=== PATIENT | male | born 1955 | race Caucasian/White ===

== ENCOUNTER 2022-06-03 10:55 | Outpatient (CLI) | payer MEDICARE, SELFPAY ==
[2022-06-03 11:51] VITALS: BMI 27.8
--- NOTE | 2022-06-03 11:56 | ECG_ITS ---
[facility] Test Date: 2022-06-03 Pat Name: Julien Bradshaw Department: Room: Gender: Male Software Application Tester: : 1955 Requested By: Joe Vasquez Order Number: [id number] Cannon MD: Katey Chacon M.D. Interpretive Statements NAME OF STUDY: TREADMILL STRESS TEST INDICATION: Dizziness Baseline blood pressure of 157/76 mm Hg, heart rate of 66 beats per minute and oxygen saturation of 95%. EKG showed sinus rhythm with PAC's. Possible old anteroseptal infarct with non specific T wave changes. ??? The patient exercised for 7 minutes and 19 seconds on a standard Randy protocol. Patient attained a maximum heart rate of 149 beats per minute( 98 % of the maximum predicted heart rate) with a blood pressure at the peak exercise of 205/93 mm Hg and oxygen saturation of 94%. The EKG at the peak exercise revealed sinus tachycardia with 1-[address] depression in II, III, aVF and V5-V6. Patient did [not have any significant arrhythmis with the exercise. The study was terminated due to maximal effort.??? During the recovery phase, there were no new changes. Patient developed chest pain in early recovery that resolved by discharge. ??? Blood pressure at the end of the recovery phase was 164/96 mm Hg with a heart rate of 65 beats per minute and oxygen saturation of 95%. ??? CONCLUSION: 1. Positive EKG response to treadmill exercise with 1-[address] depression in II, III, aVF and V5-V6. 2. No cardiac arrhythmia. Patient developed chest pain in early recovery. 3. Excellent exercise tolerance, attained a maximum of 10.2 METs. Maximum VO2 of 35.7 ml/kg/min. 4. Baseline hypertension with hypertensive response to exercise. Electronically Signed On 06-03-2022 17:49:28 CDT by Katey Chacon M.D. [email or web address]
[2022-06-03 12:00] VITALS: BP 164/96; PULSE 66
== END 2022-06-03 10:56 | disposition home or self-care (01) ==
PROVIDERS: PCP Family Medicine; Visit Provider Family Medicine
DX: R42 Dizziness and giddiness (principal); I10 Essential (primary) hypertension
CPT/HCPCS: 93017

== ENCOUNTER → 2022-07-01 14:26 | Outpatient (BNVA) | payer MEDICARE, SELFPAY | PROVIDERS: PCP Family Medicine; Visit Provider Internal Medicine Cardiovascular Disease | DX: R94.39 Abnormal result of other cardiovascular function study (principal); I12.9 Hypertensive chronic kidney disease with stage 1 through stage 4 chronic kidney disease, or unspecified chronic kidney disease; F17.200 Nicotine dependence, unspecified, uncomplicated; N18.30 Chronic kidney disease, stage 3 unspecified; R06.00 Dyspnea, unspecified; R07.9 Chest pain, unspecified; G47.33 Obstructive sleep apnea (adult) (pediatric); Z99.89 Dependence on other enabling machines and devices | CPT/HCPCS: 99205 ==

== ENCOUNTER 2022-07-24 10:04 | Outpatient (CLI) | payer MEDICARE, SELFPAY ==
--- NOTE | 2022-07-24 10:15 | USCV_ITS ---
Julien Bradshaw Age: 66 Gender: M : 1955 Exam Date: 07/24/2022 10:37 Ordering Phys: Nancy Lopez MD ([email or web address]) Technologist: Miguel Goodson [place] [facility] [place]/SOB BP: 112 / 58 HR: 61 Rhythm: Sinus Technical Quality: Adequate MEASUREMENTS (Male / Female) Normal Values 2D ECHO LV Diastolic Diameter PLAX 3.1 cm 4.2 - 5.9 / 3.9 - 5.3 cm LV Systolic Diameter PLAX 2.1 cm IVS Diastolic Thickness 1.0 cm 0.6 - 1.0 / 0.6 - 0.9 cm IVS Systolic Thickness 1.4 cm LVPW Diastolic Thickness 1.4 cm 0.6 - 1.0 / 0.6 - 0.9 cm LVPW Systolic Thickness 1.6 cm LVOT Diameter 2.0 cm LV Ejection Fraction 2D Teich 62.0 % LV Ejection Fraction MOD 2C 57.6 % LV Ejection Fraction 2C AL 58.4 % LA Diameter 3.3 cm LA Width 2.8 cm LA Height 3.6 cm RA Width 2.6 cm RA Height 3.8 cm Aorta at Sinotubular Diameter 3.0 cm IVC Diameter 1.3 cm M-MODE Aortic Annulus Diameter 3.0 cm LA Ao Ratio MM 1.1 MV E Point Septal Separation 0.8 cm DOPPLER AV Peak Velocity 132.0 cm/s LVOT Peak Velocity 107.0 cm/s AV Area Cont Eq vti 2.9 cm squared AV Area Cont Eq pk 2.5 cm squared MV Peak Velocity 85.0 cm/s MV Area PHT 6.7 cm squared Mitral E to A Ratio 0.8 MV E' Velocity 36.0 cm/s Mitral E to MV E' Ratio 8.7 Mitral E to LV E' Lateral Ratio 8.2 Mitral E to LV E' Septal Ratio 9.3 TR Peak Velocity 113.9 cm/s TR Peak Gradient 5.2 mmHg TR Mean Velocity 91.6 cm/s TR Mean Gradient 3.4 mmHg TR Velocity Time Integral 27.1 cm Right Atrial Pressure 3.0 mmHg Pulmonary Artery Systolic Pressu 8.2 mmHg PV Peak Velocity 85.5 cm/s RV Acceleration Time 0.1 s RV Ejection Time 0.3 s RV AcT/ET 0.5 FINDINGS Left Ventricle Normal left ventricular size and systolic function, EF 65 %. Mild left ventricular hypertrophy. No regional wall motion abnormalities. Grade I/IV diastolic dysfunction (abnormal relaxation filling pattern), normal to mildly elevated filling pressures. Right Ventricle The right ventricle is normal in size and function. Right Atrium The right atrium is normal in size. Left Atrium The left atrium is normal in size. Mitral Valve No gross abnormalities noted Aortic Valve Thickened aortic valve. Tricuspid Valve No gross abnormalities noted Pulmonic Valve Pulmonic valve not well visualized. Pericardium No pericardial effusion. Aorta Normal ascending aorta dimension. IVC The inferior vena cava appears normal. CONCLUSIONS Normal left ventricular size and systolic function, EF 65 %. Mild left ventricular hypertrophy. No regional wall motion abnormalities. Grade I/IV diastolic dysfunction (abnormal relaxation filling pattern), normal to mildly elevated filling pressures. Thickened aortic valve. No significant stenotic or regurgitant lesions There is no pericardial effusion. No similar previous studies are available for comparison Dr Nancy Lopez MD FACC (Electronically Signed) Final Date: 25 July 2022 10:08 S
== END 2022-07-24 10:05 | disposition home or self-care (01) ==
LOC: RAD 10:05
PROVIDERS: PCP Family Medicine; Visit Provider Internal Medicine Cardiovascular Disease
DX: R06.09 Other forms of dyspnea (principal); R07.9 Chest pain, unspecified; R06.02 Shortness of breath; I35.8 Other nonrheumatic aortic valve disorders
CPT/HCPCS: 93306

== ENCOUNTER 2022-07-29 12:05 | Outpatient (CLI) | payer MEDICARE, SELFPAY ==
[2022-07-29 12:33] LABS: Basophils # 0.1 10^3/uL (0.0-0.1); Eosinophils # 0.6 10^3/uL (0.0-0.8); Eosinophils % 7.1 %; Hematocrit 33.9 % (42.0-52.0); Hemoglobin 11.2 g/dL (11.7-16.6); Lymphocytes # 3.3 10^3/uL (0.8-4.8); Lymphocytes % 39.1 %; Mean Corpuscular Hemoglobin 28.1 pg (28.0-34.0); Mean Platelet Volume 9.9 fL (7.4-10.4); Monocytes # 0.5 10^3/uL (0.2-0.9); Monocytes % 6.4 %; Neutrophils # 3.87 10^3/uL (1.8-7.7); Nucleated Red Blood Cells % 0 %; Platelet Count 379 10^3/cmm (130-400); Red Blood Count 3.99 10^6/uL (4.1-5.3); Red Cell Distribution Width 13.3 % (12.1-15.1); White Blood Count 8.4 10^3/uL (4.0-10.0)
[2022-07-29 12:44] LABS: INR 0.94 (0.83-1.21); Prothrombin Time (Patient) 12.9 Seconds (12.0-15.1)
[2022-07-29 12:55] LABS: Anion Gap 17.8 (5-19); Blood Urea Nitrogen 28 mg/dL (8-23); Calcium 9.7 mg/dL (8.5-10.5); Carbon Dioxide 22 mmol/L (22-29); Chloride 99 mmol/L (98-107); Glomerular Filtration Rate 60.2 mL/min (90-130); Glucose 135 mg/dL (65-115); Osmolality Calculated 286 mOsm/kg (285-295); Potassium 4.8 mmol/L (3.5-5.1); Sodium 134 mmol/L (136-145)
== END 2022-07-29 12:06 | disposition home or self-care (01) ==
LOC: LAB 12:08
PROVIDERS: PCP Family Medicine; Visit Provider Internal Medicine Cardiovascular Disease
DX: R94.39 Abnormal result of other cardiovascular function study (principal)
CPT/HCPCS: 80048; 85025; 85610; 86850; 86900

== ENCOUNTER 2022-08-01 06:00 | Outpatient (CLI) | payer MEDICARE, SELFPAY ==
[2022-08-01] VITALS (20 sets, daily range): BP systolic 105–179; BP diastolic 70–95; PULSE 50–62; RESP 3–23; TEMP 36.4; O2SAT 96–98; BMI 27.8
--- NOTE | 2022-08-01 06:00 | XACV_ITS ---
Exam Room: 2 Ht: 180 cm Wt: 91 kg BSA: 2.15 m2 Gender: Male : 1955 Any Known Allergies: Other Exam Priority: Routine Procedure(s): Procedure Description: Diagnostic procedure Procedure Description: Left Heart Catheterization Procedure Description: Coronary Angiography Procedure Description: Pressure Wire Diagnostic Cath Status: Elective Diagnostic Findings * The left main is a medium caliber vessel with minimal intimal irregularities. * The left anterior descending artery is a medium caliber vessel which appears to wrap around the LV apex minimally. The mid LAD was found to have a long tubular narrowing of around 50%. Rest of the vessel was found to have mild diffuse intimal irregularities with no significant stenotic lesions.. * The left circumflex artery is a medium caliber vessel which was found to give off a large obtuse marginal branch proximally. This vessel bifurcates at the proximal segment. One of the bifurcation branches was found to have around 60-70% diffuse narrowing proximally. 20 to 30% narrowing was noted in the other branch. The circumflex proper is a slender vessel which appears run in the AV groove. * The right coronary artery is a medium caliber dominant vessel which was found to have mild diffuse disease proximally. Right after the second RV branch, there was a tubular narrowing of around 40%. Just before the terminal bifurcation, there was an eccentric narrowing of around 50- 60%. Mild diffuse intimal irregularities were noted in the PLV and the PDA branch. PCI Status: Elective PCI LVEF Assessed: No Interventional Findings * IFR distal RCA 0.94. IFR proximal second obtuse marginal 0.96. Decision for PCI with Surgical Consult: No PCI for Multi-vessel Disease: No Conclusions 1. 66-year-old white male with history of hypertension, dyslipidemia, type 2 diabetes, chronic kidney disease, obstructive sleep apnea and a strong family history for premature atherosclerotic heart diseas, presenting with complaints of recurrent episodes of chest pain. He had an exercise stress test which revealed 1 to [address] depressions in the inferior and high lateral leads. In view of the patient's symptoms, multiple risk factors and the abnormal objective findings, in order to further evaluate his coronary status, a cardiac catheterization was recommended. Patient underwent left heart catheterization with left and right coronary angiogram today. The findings are as follows. 2. 1. Mild diffuse coronary artery disease. 60 to 70% tubular narrowing in one of the obtuse marginal branches. 50 to 60% eccentric lesion in the distal RCA. Mild diffuse disease in the other vessels. Patient relative angiographic findings, it was thought to be appropriate to consider an IFR of the OM and RCA lesions . LVEDP was 25 mmHg. I reviewed and discussed the categorization data with the Dr. Mae,who concurred with this plan. At this point Dr. Mae took over further management of this patient. The IFR was 0.94 in the RCA and 0.96 in the OM branch.. Diagnostic RX Recommendation: medical therapy and/or counseling LV EDP: 25 mmHg Left Ventriculography Findings: * The LV gram was not performed because of the concern about the dye overload. The LVEDP was 25 mmHg. Pressures Phase:Rest AO : 108 / 76 ( 87 ) @ 8:28:00 AM 119 / 78 ( 94 ) @ 8:33:00 AM 124 / 65 ( 88 ) @ 8:39:00 AM 131 / 61 ( 88 ) @ 8:39:00 AM 136 / 124 ( 95 ) @ 9:17:00 AM LV : 138 / -6 / 25 @ 8:38:00 AM 139 / -6 / 23 @ 8:39:00 AM Valves Phase:DefaultPhase AV : 13.0 @ 8:28:51 AM AV Mean Gradient: 12.0 @ 8:28:51 AM Clinical Evaluation EBL: 5mL-10mL Procedural Details Procedure Consent Obtained. Pre-Procedure Time Out. Identified patient by full name and date of as verbalized by the patient/guarantor. Does the consent match the physician's order: Yes. Accurate & Complete Informed Consent: Yes. Inpatient/Outpatient History & Physical on Chart: Yes. If H&P is completed, is and addenduem needed: Yes; If yes, is the addendum complete: Yes. Visualize and Verify Site with Patient/Guarantor: N/A. Relevant Radiology Images available: Yes. Pre-op teaching completed and patient verbalized understanding. The risks, benefits, and alternatives of sedation and/or procedure were discussed by physician. The patient agrees to continue. Procedure started. Current Diagnosis : Chest Pain. Physician arrived. [facility] Clinical Fraility Score: 3: Managing Well. Nurse Emergency Indications: Worsening Angina. Chest Pain Symptom Assessment: Atypical Angina. Correct patient, site and procedure confirmed by cath team. Current diagnosis: Chest Pain. PERRLA. Strong, equal hand cement mason highways and streets bilaterally. Lungs clear x 5 lobes. IV Site on Arrival: 20 gauge in the right forearm. IV Fluids: 0.9% NaCl at KVO. 0 mL infused prior to slab grinder. Pre Procedural Pulses: bilateral dorsalis pedis was 1+. Pre Procedural Pulses: bilateral posterior tibial was 2+. Pre Procedural Pulses: bilateral radial was 2+. Oxygen started at 2liters/min via nasal canula. right groin was prepped with chloroprep then draped in the usual sterile fashion. Baseline sample Acquired. HR: 66 BPM. right radial was prepped with chloroprep then draped in the usual sterile fashion. Physician scrubbed in. Immediate Pre-Procedure Time Out. Correct Patient: Yes; Correct Procedure: Yes; Correct Site: Yes; Correct Patient Position: Yes; Correct Supplies: Yes; Dried Flammable Prep: Yes; Blood Products Available: N/A;. Lidocaine 1% infiltrated to the right radial. Arterial access obtained. A 5 cymraes Jone catheter in over wire. Multiple views taken of left coronary artery. Catheter redirected to the RCA. Catheter removed over the exchange wire. A 5 cymraes JR4 catheter in over wire. Multiple views taken of right coronary artery. Dr. Mae called to review films. Catheter removed over the exchange wire. A 5 cymraes Angled Pig catheter in over wire. EDP Sample taken: LV 138/-7,25; HR: 59 BPM; SpO2: 99%. Dr. Mae arrived. Pullback taken: LV 139/-7,23; AO 124/65(88); Mean: 12mmHg, Peak to Peak: 13mmHg, SEP: 20sec/min; HR: 58 BPM; SpO2: 98%. Catheter removed over the exchange wire. Dr. Mae scrubbed in. 6 cymraes XB 3.5 guide catheter was inserted over the wire. Guide catheter out. 6 cymraes JR 4 guide catheter was inserted over the wire. FFR guidewire was advanced through the guide catheter to lesion in the distal RCA. Fractional flow reserve measurements obtained. Result: 0.94. Wire out. Guide catheter out. 6 cymraes XB 3.5 guide catheter was inserted over the wire. Guide catheter out. 6 cymraes XB 3 guide catheter was inserted over the wire. FFR guidewire was advanced through the guide catheter to lesion in the OM. Fractional flow reserve measurements obtained. Results: 0.96. Wire out. Guide catheter out. A TR Band was successful obtaining hemostatsis at the Right Radial artery insertion site. Post Procedure: Pulses reassessed and unchanged. PERRLA. Strong, equal hand cement mason highways and streets bilaterally. No VTE prophylaxis required. Medication's Wasted: Lidocaine 1% = 4 mL. Medication's Wasted: Nitro = 49.8 mg. Medication's Wasted: Heparin = 1000 units. Total IV fluids: 364 mL. Complications: None. Estimated blood loss: 5mL-10mL. Responsiveness - Normal response to verbal stimuli; alert and oriented, PERRLA. Airway - Unaffected, no intervention required; spontaneous ventilation. Circulation: W/N/L, pulses unchanged. Nausea/Vomiting: No. Procedure completed. Patient transferred by wheelchair to CPRU. Vital chart was stopped. Access Site Site: Right Radial artery Sheath Size: 6 Fr Hemostasis Method: TR Band Hemostasis Success: Successful Procedure Medications Start: 7:11 AM Stop: 7:11 AM Medication: Versed Amount: 1 mg Route: I.V. Start: 7:11 AM Stop: 7:11 AM Medication: Fentanyl Amount: 50 mcg Route: I.V. Start: 7:22 AM Stop: 7:22 AM Medication: Nitrogylcerin Amount: 200 mcg Route: I.A. Start: 7:22 AM Stop: 7:22 AM Medication: Verapamil Amount: 5 mg Route: I.A. Start: 7:24 AM Stop: 7:24 AM Medication: Versed 1 mg and Fentanyl 25 mcg Amount: 1 Route: I.V. Start: 7:25 AM Stop: 7:25 AM Medication: Heparin Amount: 5000 units Route: I.V. Start: 7:46 AM Stop: 7:46 AM Medication: Versed 1 mg and Fentanyl 25 mcg Amount: 1 Route: I.V. Start: 8:09 AM Stop: 8:09 AM Medication: Versed Amount: 1 mg Route: I.V. I, the attending physician, have reviewed and verified all procedure medications. Yes, all medications given per verbal order History/Risk Factors Hypertension: Yes Dyslipidemia: Yes Peripheral Arterial Disease (PAD): No Myocardial Infarction ([place]): No Obesity: Yes Renal Disease: No Prior Interventions PCI: No CABG: No Valve Surgery: No Report Signatures Diagnostic Workflow Finalized by Dr Nancy Lopez MD [facility] on 08/01/2022 06:42 PM Interventional Workflow Finalized by Dr. Marcelo Mae MD on 08/01/2022 08:43 AM
[2022-08-01] MEDS: diphenhydrAMINE 50 mg Capsule PO (06:35)
--- NOTE | 2022-08-01 07:05 | P.HP_ITS ---
Providers/Chief Complaint Admitting Physician: VIKTOR Lopez Primary Care Provider: Joe Vasquez Chief Complaint: R94.39 Abnormal result of other cardiovascular fun History of Present Illness Julien Bradshaw is a 66 year old male with a history of hypertension, type 2 diabetes, dyslipidemia, chronic kidney disease, obstructive sleep apnea, smoking abuse and a strong family history for premature atherosclerotic heart disease is presenting with complaints of chest pain and dyspnea exertion. He had an exercise stress test on 06/03/2022. He had a 1 to [address] depressions in lead II, 3, aVF, V5 to V6. In view of his ongoing symptoms, multiple risk factors and the abnormal stress test, in order to further evaluate his coronary status, a cardiac catheterization was recommended. Patient has been having episodes of chest pains 3-4 times a week, each time lasting for 1 to 2 minutes and then gradually subsides. He has no associated nausea or vomiting. No sweating or dizziness. Intensity of the pain is moderate. Review of Systems Narrative: CONSTITUTIONAL: No fever or chills. EYES: No blurring of vision or other visual disturbances lately. ENT: No hoarseness of voice, auditory disturbances or sore throat. CARDIOVASCULAR: As mentioned above. RESPIRATORY: No significant cough. GASTROINTESTINAL: No hematemesis or melena. GENITOURINARY: No dysuria or hematuria. INTEGUMENTARY: No skin rashes or history of skin cancer. NEURO: No transient ischemic attacks or amaurosis. PSYCHIATRIC: No history of psychosis or major depression. HEMATOLOGIC: No bleeding disorders or significant anemia. ENDOCRINE: No history of polyuria or polydipsia. MUSCULOSKELETAL: No recent joint pain or swelling. ALLERGY/IMMUNOLOGY: As mentioned above. Medications/Allergies Home Medications Medication Instructions Recorded Confirmed Last Taken Type amlodipine 5 mg tablet 5 mg PO DAILY 07/01/22 07/31/22 07/31/22 19:00 History carvedilol 3.125 mg tablet 3.125 mg PO BID 07/01/22 07/31/22 07/31/22 19:00 History gemfibrozil 600 mg tablet 600 mg PO BID 07/01/22 07/31/22 07/31/22 19:00 History glipizide 10 mg tablet, extended 10 mg PO DAILY 07/01/22 07/31/22 07/31/22 07:00 History release 24 hr insulin detemir U-100 100 unit/mL 42 unit SUBCUT BEDTIME 07/01/22 07/31/22 07/31/22 19:00 History (3 mL) subcutaneous pen (Levemir FlexTouch U-100 Insulin) losartan 25 mg tablet 25 mg PO DAILY 07/01/22 07/31/22 07/31/22 07:00 History lovastatin 20 mg tablet 20 mg PO DAILY 07/01/22 07/31/22 07/31/22 19:00 History metformin 500 mg tablet 1,000 mg PO BID 07/01/22 07/31/22 07/31/22 07:00 History rrnwajdd-zsz-lahzg acid 0.4 1 tab PO DAILY 07/01/22 07/31/22 07/31/22 19:00 History mg-lycopene 300 mcg-lutein 250 mcg tablet (Centrum Silver) nitroglycerin 0.4 mg sublingual 0.4 mg sublingual Q5M PRN chest 07/01/22 07/31/22 Unknown Rx tablet pain #50 tabs semaglutide 0.25 mg or 0.5 mg (2 0.5 mg SUBCUT Q7D 07/01/22 07/31/22 07/26/22 07:00 History mg/1.5 mL) subcutaneous pen injector (Ozempic) tadalafil 20 mg tablet 20 mg PO .prn 07/01/22 07/31/22 Unknown History Allergies Allergy/AdvReac Type Severity Reaction Status Date / Time lisinopril Allergy Intermediate hyperkalemi Uncoded 08/01/22 06:21 a PFSH Acute PFSH: Medical History Atherosclerosis CKD (chronic kidney disease) stage 3, GFR 30-59 ml/min Diabetes Erectile dysfunction Hyperlipidemia Hypertension DAVID on CPAP Tobacco use Family History Family/Other CAD (coronary artery disease) Diabetes Father CAD (coronary artery disease) Diabetes Mother CAD (coronary artery disease) Dementia Diabetes Stroke Sister CAD (coronary artery disease) Cancer Diabetes Lung disease Grandfather CAD (coronary artery disease) Diabetes Grandmother CAD (coronary artery disease) Diabetes Denies family history of Clotting disorder Chronic kidney disease (CKD) Suicide Anesthesia complication Bleeding disorder Social History Smoking and tobacco status: current every day smoker Alcohol intake: never Vitals/I&O/Wt Last Vital Signs Temp 97.6 F 08/01/22 06:00 Pulse 62 08/01/22 06:00 Resp 18 08/01/22 06:00 BP 146/82 08/01/22 06:00 Pulse Ox 97 08/01/22 06:00 O2 Del Method 08/01/22 06:00 Weight last 48 hrs Weight 200 lb Physical Exam Narrative: GENERAL: The patient is alert and oriented times three. Not in any acute distress. HEENT: No significant pallor, icterus or lymphadenopathy.Oral cavity: There are no mucous membrane lesions. NECK: Trachea appears to be central. No masses noted. No JVD or thyromegaly appreciated. RESPIRATORY: Chest is symmetrical. No intercostals muscle retraction or any accessory muscle activation. There is no chest wall tenderness. Breath sounds are heard bilaterally. No rales or rhonchi heard. No evidence of any consolidation. BREASTS: Deferred. HEART: The heart sounds are normal. No S3 or S4. No significant murmurs. No pericardial rub ABDOMEN: No vessel pulsations or distention. No tenderness. No organomegaly appreciated. Bowel sounds are normally heard. : Deferred. RECTAL: Deferred. LYMPHATIC: No lymphadenopathy noted in the neck. EXTREMITIES: No edema or cyanosis. No clubbing. MUSCULOSKELETAL: No acute joint deformities or swelling SKIN: There are no significant rashes or ecchymosis NEUROPSYCHIATRIC: The patient is alert and oriented x3. Appears to be in a good mood. No tremors or rigidity noted. A&P Assessment and plan (1) Abnormal cardiovascular stress test: The implications of the abnormal stress test was discussed with the patient. In view of his multiple risk factors and the ongoing symptoms, in order to further evaluate the coronary status, a cardiac catheterization was recommended. The risk of bleeding, hematoma, vascular injury, myocardial infarction, CVA, renal failure and other concomitant complications were explained in detail. Patient understood this well and consented to proceed. In view of his chronic kidney disease, he carries a high risk for contrast-induced nephropathy. This also was discussed with the patient in detail which is understood well. (2) Hypertension: His blood pressures are stage II. We will be closely monitoring his blood pressure and the medication will be adjusted. (3) DAVID on CPAP: Patient is on CPAP. We will continue on the current treatment. (4) CKD (chronic kidney disease) stage 3, GFR 30-59 ml/min: Patient will be hydrated with normal saline IV. We will be trying to limit the amount of dye. (5) Diabetes: Blood sugar will be closely monitored. Plan Based on the results of the cardiac catheterization, further management decisions will be made. Attestations Medical Necessity Statement*: Patient may require 1 midnight stay for further management of his condition Coding Level of Care Code Acute Agricultural Engineering Technician for g Fwd History Expanded Problem Focused Exam Expanded Problem Focused Medical Decision Making Moderate Complexity Diagnoses Abnormal cardiovascular stress test R94.39 Hypertension I10 DAVID on CPAP G47.33; Z99.89 CKD (chronic kidney disease) stage 3, GFR 30-59 ml/min N18.30 Diabetes E11.9
--- NOTE | 2022-08-01 07:13 | W.PM.OPSUD ---
Surgery/Procedure H&P Update DATE OF PROCEDURE: August 01, 2022 DATE H&P PERFORMED: 08/01/22 H&P UPDATE INFORMATION: I have reviewed H&P completed within last 30 days, I have examined patient prior to procedure and No changes to prior documentation PREOP DIAGNOSIS: ASHD PRIMARY INDICATION FOR PROCEDURE: Multiple risk factors for coronary artery disease/chest pain /abnormal stress test PLANNED PROCEDURE: Operation Date: 08/01/22 07:00 Proposed Procedures p [id number] Left heart catheterization R94.39(Left) - Nancy Lopez MD PATIENT REASSESSED PRIOR TO SEDATION, WITH NO CHANGE NOTED: Yes PHYSICAL EXAM: alert, oriented x 3, clear to auscultation bilaterally and regular rate & rhythm AIRWAY EVAL/ANESTHESIA PLAN: normal airway, see other exam findings, ASA III, Monitored Anesthesia, Local Anesthesia, Risks, benefits & alternatives of sedation and/or procedure discussed and Patient agrees to continue as planned
--- NOTE | 2022-08-01 08:30 | SUR.PHASEII ---
Received patient from the Braiding Machine Operator- status post cardiac catheterization via the right radial approach. TR Band is in place- 20 ml in the band. No s/s of active bleeding present at this time. Verbal post cath instrctions given to the patient and family which is now at bedside. VSS. Call light placed within easy reach. No questions at this time. No pain reported.
--- NOTE | 2022-08-01 08:35 | SUR.PHASEII ---
IV NS INFUSING AT 125 ML/HR ORDERED.
--- NOTE | 2022-08-01 11:55 | PC.NURSE ---
Around 1145: Removed TR Band. No drainage, ecchymosis, or hematoma noted. Cleaned site with soap and water, dressed site with band-aid. Vitals stable. No complains of pain or discomfort. Will continue to monitor.
--- NOTE | 2022-08-01 13:30 | PC.NURSE ---
Around 1330: Discharged patient to home with family via wheel chair to private vehicle. Puncture site to right wrist clean, dry, et intact. No hematoma noted. Vitals stable. No c/o pain or discomfort. Reviewed discharge instructions with patient and family. Patient verbalized understanding of all teaching, no questions or concerns. Follow up appointments made for one week from today with ASYA Galvan.
== END 2022-08-01 11:30 | disposition home or self-care (01) ==
PROVIDERS: Internal Medicine Cardiovascular Disease; PCP Family Medicine; Visit Provider Internal Medicine Cardiovascular Disease
DX: I25.10 Atherosclerotic heart disease of native coronary artery without angina pectoris (principal); R94.39 Abnormal result of other cardiovascular function study; G47.33 Obstructive sleep apnea (adult) (pediatric); Z99.89 Dependence on other enabling machines and devices; E11.22 Type 2 diabetes mellitus with diabetic chronic kidney disease; I12.9 Hypertensive chronic kidney disease with stage 1 through stage 4 chronic kidney disease, or unspecified chronic kidney disease; N18.30 Chronic kidney disease, stage 3 unspecified; E78.5 Hyperlipidemia, unspecified; F17.210 Nicotine dependence, cigarettes, uncomplicated; Z82.49 Family history of ischemic heart disease and other diseases of the circulatory system
CPT/HCPCS: 93458; 93571; 93572; 96360; 96361; 99152; 99153; C1769; C1887; C1894; J0461; J1644; J2250; J3010; J3490; J7030; Q0163; Q9967

== ENCOUNTER → 2022-08-08 10:44 | Outpatient (BNVA) | payer MEDICARE, SELFPAY | PROVIDERS: PCP Family Medicine; Visit Provider Nurse Practitioner Family | DX: I25.10 Atherosclerotic heart disease of native coronary artery without angina pectoris (principal); F17.200 Nicotine dependence, unspecified, uncomplicated; I12.9 Hypertensive chronic kidney disease with stage 1 through stage 4 chronic kidney disease, or unspecified chronic kidney disease; E11.22 Type 2 diabetes mellitus with diabetic chronic kidney disease; N18.30 Chronic kidney disease, stage 3 unspecified; Z79.84 Long term (current) use of oral hypoglycemic drugs | CPT/HCPCS: 80048; 99214 ==

== ENCOUNTER 2025-02-25 13:47 | Outpatient (CLI) | payer MEDICARE, SELFPAY ==
--- NOTE | 2025-02-25 13:49 | PETR_ITS ---
PROCEDURE INFORMATION: Exam: PET/CT Skull Base to Mid-thigh Exam date and time: 02/25/2025 2:33 PM Age: 69 years old Clinical indication: Condition or disease; Condition/disease: Lung nodule LABS AND CLINICAL REPORTS: Glucose: 58 mg/dl Treatment strategy for malignancy (PET staging): Initial Staging (PI) TECHNIQUE: Imaging protocol: Following at least four-hour fasting and following the injection of radiopharmaceutical, low dose CT images were obtained. Then, PET images were obtained. Attenuation corrected images were constructed using the CT scan. Fused images of PET and CT were reviewed. The standardized uptake values (SUV) reported below are maximum values within a region of interest, expressed in gm/ml. Exam includes orbital meatal line to mid-thigh. SUV normalization method: BodyWeight Radiopharmaceutical: 11.11 mCi F-18 FDG (Fluorodeoxyglucose), IV. Time of imaging post radiopharmaceutical administration: 45 minutes Injection site: LFA COMPARISON: No relevant prior studies available. FINDINGS: Brain: Visualized brain has normal physiologic uptake. Pharynx: No abnormal uptake. Larynx: No abnormal uptake. Lungs, pleura and trachea: 6 mm right lower lobe superior segment nodule on axial images 108 and 109. Focal very low-level FDG uptake superior to this nodule shows SUV max 1.4 on axial image 100, possibly representing misregistration artifact. Left lower lobe superior segment calcified granuloma. Heart: Normal physiologic uptake. Coronary arteries: Moderate coronary artery calcification. Mediastinal space: No abnormal uptake. Liver: Enlarged liver measures 21.4 cm in craniocaudal dimension. Few scattered subtle foci of low-level FDG uptake without discrete underlying CT abnormality, index focus at the caudate lobe showing SUV max 3.0 on axial image 140. Gallbladder and biliary ducts: No abnormal uptake. Pancreas: No abnormal uptake. Spleen: No abnormal uptake. Adrenal glands: No abnormal uptake. Kidneys and ureters: Normal physiologic uptake. Small right renal calcification without hydronephrosis. Stomach and bowel: Short-segment FDG uptake along the lesser gastric curvature without discrete underlying CT abnormality shows SUV max 7.3 on axial image 144. Background lower level more diffuse gastric uptake. Multifocal heterogeneous long segment FDG uptake throughout the small and large bowel. CT images demonstrate short-segment eccentric masslike thickening at the ascending colon just distal to the ileocecal valve measuring approximately 3.8 x 2.8 cm on axial image 199 with associated FDG uptake similar to background regional small bowel and colonic uptake. Proximal duodenal diverticulum. Vasculature: No abnormal uptake. Moderate systemic atherosclerotic calcification without aortic aneurysm. Lymph nodes: No abnormal uptake. No lymphadenopathy in the head, neck, chest, abdomen, pelvis, and extremities. Left hilar calcified lymph node in keeping with sequela of old granulomatous disease. Skeleton: Degenerative changes along the axial skeletal system, acromioclavicular joints, and left hip. Suspect prior right rotator cuff repair. Multiple left rib chronic fracture deformities. Soft tissues: No abnormal uptake in the visualized head, neck, chest, abdomen, pelvis, and extremities. METRICS: Mediastinal blood pool: SUV mean 1.3 Liver uptake: SUV mean 1.7 PET/PET skull to thigh INIT [id number] IMPRESSION: 1. 6 mm right lower lobe superior segment nodule is indeterminate. Although possible misregistered very low-level FDG uptake suggests benignity, small size limits assessment of metabolic activity and this could be spuriously low. 2. FDG avid eccentric masslike thickening at the ascending colon just distal to the ileocecal valve suspicious for malignancy. Recommend colonoscopy. 3. Short-segment FDG uptake along the lesser gastric curvature without discrete underlying CT abnormality with background more diffuse low-level FDG uptake. This may be inflammatory, neoplastic process not excluded. 4. Hepatomegaly with few scattered subtle foci of low-level FDG uptake without discrete underlying CT abnormality. Although these could be on the basis of mild background heterogeneity, recommend liver MRI without and with contrast particularly given abnormal ascending colon finding. 5. Additional chronic and incidental findings as above.
== END 2025-02-25 13:48 | disposition home or self-care (01) ==
PROVIDERS: PCP Family Medicine; Visit Provider Nurse Practitioner Family
DX: R91.1 Solitary pulmonary nodule (principal); R93.89 Abnormal findings on diagnostic imaging of other specified body structures; K63.89 Other specified diseases of intestine; R16.0 Hepatomegaly, not elsewhere classified; J84.10 Pulmonary fibrosis, unspecified; I25.10 Atherosclerotic heart disease of native coronary artery without angina pectoris; N28.89 Other specified disorders of kidney and ureter; R93.3 Abnormal findings on diagnostic imaging of other parts of digestive tract; K57.11 Diverticulosis of small intestine without perforation or abscess with bleeding; I70.0 Atherosclerosis of aorta; R59.0 Localized enlarged lymph nodes; M47.9 Spondylosis, unspecified; M19.012 Primary osteoarthritis, left shoulder; M19.011 Primary osteoarthritis, right shoulder; M16.12 Unilateral primary osteoarthritis, left hip; M95.4 Acquired deformity of chest and rib
CPT/HCPCS: 78815; A9552